=== PATIENT | female | born 1975 | race Two or more races ===

== ENCOUNTER 2016-04-26 15:28 | Emergency (ER) | payer OTHER ==
[2016-04-26 16:12] LABS: ABSOLUTE NEUTROPHIL COUNT 4.1 K/mm3 (1.8-7.7); BASO % 0.3 % (0.2-1.0); EOS # 0.1 (0.0-0.5); EOS % 2.1 % (0.9-2.9); HEMATOCRIT 37.3 % (37.0-47.0); HEMOGLOBIN 12.5 gm/l (12.0-16.0); IMM NEUT% 0.2 % (0-1); LYMPH # 1.7 (1.0-4.8); MEAN CELL VOLUME 92.3 fl (81.0-99.0); MEAN CORPUSCULAR HEMOGLOBIN 30.9 pg (27.0-31.0); MEAN CORPUSCULAR HGB CONC 33.5 g/dl (33.0-37.0); MEAN PLATELET VOLUME 10.9 fl (7.4-10.4); MONO # 0.7 (0.0-0.8); MONO % 9.9 % (4-12); NEUT % 62.5 % (43-75); PLATELET COUNT 254 K/mm3 (130-400); RED CELL DISTRIBUTION WIDTH 12.1 % (11.5-14.5)
[2016-04-26 16:29] LABS: ALB/GLOB RATIO 1.6 (>1.0); ALBUMIN 4.2 gm/dL (3.5-5.7); CALCIUM 9.3 mg/dL (8.6-10.3)
[2016-04-26 16:35] LABS: TROPONIN I < 0.01 ng/ml (0.0-0.06)
[2016-04-26 16:39] LABS: CKMB ISOENZYME 1.1 ng/ml (0.6-6.3)
--- NOTE | 2016-04-26 17:21 | RAD ---
Exam: Two-view chest COMPARISON: None INDICATION: Left arm pain since last night. FINDINGS: PA and lateral views of the chest were obtained. Cardiac silhouette is within normal limits. Lungs are well-inflated. There is no focal airspace disease or pleural effusion. Apparent minor nodularity in the right upper lobe is noted and felt to reflect vessels on end. Bones of the chest wall within normal limits. IMPRESSION: Negative two-view chest.
== END 2016-04-26 17:22 | disposition home or self-care (01) ==
LOC: ED 15:28
DX: R07.9 Chest pain, unspecified (principal); M79.602 Pain in left arm; R06.02 Shortness of breath; R53.83 Other fatigue